=== PATIENT | male | born 1980 | race Caucasian/White ===

== ENCOUNTER 2018-04-13 11:41 | Emergency (ER) | payer SELFPAY ==
[~2018-04-13] VITALS: Ht 175.3 cm; Wt 67.6 kg
[2018-04-13 12:03] VITALS: BP 110/70
--- NOTE | 2018-04-13 12:03 | NUR ---
ED Nurse Note: PT WALKED IN TO ER TODAY FROM [facility]. PT C/O FEVER AND BODYACHE, 10/10 PAIN, X THIS AM. ORAL TEMP AT BEDSIDE 98.7F. LUNG SOUNDS CLEAR IN ALL LOBES. NO SIGNS OF RESPIRATORY DISTRESS OR RETRACTIONS NOTED.
--- NOTE | 2018-04-13 12:24 | Emergency Room Report ---
History of Present Illness General Chief Complaint: Flu Like Symptoms Source: Patient Present Illness HPI 37-year-old male with no significant past medical history claiming that he is coming from the [facility] complaining of one day of fever and chills, and severe body aches. Patient reports that he recently got back from [place] and started having symptoms on the airplane. Complains of cough and congestion with green phlegm and a sore throat however sore throat has resolved. Denies SOB, wheezing, chest pain, palpitation, abdominal pain, nausea vomiting, and diarrhea. Patient has not taken medication for his symptoms Allergies: Coded Allergies: No Known Allergies (Unverified , 04/13/18) Patient History Past Medical History: see triage record Past Surgical History: unable to obtain Pertinent Family History: none Immunizations: UTD Reviewed Nursing Documentation: PMH: Agreed; PSxH: Agreed Nursing Documentation-PMH Past Medical History: No History, Except For Review of Systems All Other Systems: negative except mentioned in HPI Physical Exam Vital Signs Date Time Temp Pulse Resp B/P (MAP) Pulse Ox O2 Delivery O2 Flow Rate FiO2 04/13/18 11:56 101.5 130 20 105/66 98 Room Air Sp02 EP Interpretation: reviewed, normal General Appearance: normal inspection, well appearing, no apparent distress Head: normocephalic, atraumatic Eyes: bilateral eye normal inspection, bilateral eye PERRL ENT: hearing grossly normal, no angioedema, TMs + canals normal, uvula midline , pharyngeal erythema Neck: normal inspection, full range of motion, supple Respiratory: normal inspection, chest non-tender, lungs clear, no rhonchi, no respiratory distress Cardiovascular #1: normal inspection, normal peripheral pulses, no murmur Gastrointestinal: normal inspection, non tender, soft Rectal: deferred Genitourinary: no CVA tenderness Musculoskeletal: normal inspection, back normal Neurologic: normal inspection, alert, oriented x3 Psychiatric: normal inspection, judgement/insight normal Skin: normal inspection, normal color, no rash, warm/dry, normal turgor Lymphatic: normal inspection, no adenopathy Medical Decision Making PA Attestation all diagnoses and treatment plan were reviewed and discussed with my supervising physician Dr. Lopez Diagnostic Impression: Primary Impression: Influenza-like symptoms Additional Impression: Viral URI ER Course 37-year-old male with no significant past medical history claiming that he is coming from the [facility] complaining of one day of fever and chills, and severe body aches. Patient reports that he recently got back from [place] and started having symptoms on the airplane. Complains of cough and congestion with green phlegm and a sore throat however sore throat has resolved. Denies SOB, wheezing, chest pain, palpitation, abdominal pain, nausea vomiting, and diarrhea. Patient has not taken medication for his symptoms Ddx considered but are not limited to viral URI, influenza, strep pharyngitis, bronchitis Vital signs: are WNL, fever of 101F H&PE are most consistent with influenza-like symptoms and viral URI ORDERS: Tamiflu, ibuprofen, Phenergan ED INTERVENTIONS: and Tylenol DISCHARGE: At this time pt. is stable for d/c to home. Will provide printed patient care instructions, and any necessary prescriptions. Care plan and follow up instructions have been discussed with the patient prior to discharge. Last Vital Signs Date Time Temp Pulse Resp B/P (MAP) Pulse Ox O2 Delivery O2 Flow Rate FiO2 04/13/18 12:03 66 20 Room Air 04/13/18 12:03 98.7 110/70 99 Disposition: HOME, SELF-CARE Condition: Stable Scripts Promethazine Hcl (PROMETHAZINE HCL*) 6.25 Mg/5 Ml Syrup 5 ML ORAL Q6H, #120 ML 0 Refills Prov: Ronda Santiago 04/13/18 Ibuprofen* (MOTRIN*) 600 Mg Tablet 600 MG ORAL Q8H PRN for For Pain, #30 TAB 0 Refills Prov: Ronda Santiago 04/13/18 Oseltamivir Phosphate (Tamiflu) 75 Mg Capsule 75 MG ORAL TWICE A DAY for 5 Days, #10 CAP Prov: Ronda Santiago 04/13/18 Patient Instructions: Upper Respiratory Infection, Adult, [id number] Additional Instructions: take medications as directed, increase oral hydration fruits and vegetables avoid greasy and spicy food. Ronda Santiago Apr 13, 2018 12:24
[2018-04-13] MEDS ORDERED: PROMETHAZI6.25 MG/1 ORAL (12:25)
[2018-04-13] MEDS ORDERED: IBUPROFEN600 MG ORAL (12:25)
[2018-04-13] MEDS ORDERED: TAMIFLU75 MG ORAL (12:25)
[2018-04-13] MEDS ORDERED: Acetaminophen 500mg (ES) tab ORAL ONE (12:30)
[2018-04-13 13:21] VITALS: BP 112/76
--- NOTE | 2018-04-13 13:23 | NUR ---
ED Nurse Note: PT LAYING PEACEFULLY IN BED IN NAD. AOX4. PRESCRIPTIONS AND DISCHARGE PAPERWORK EXPLAINED TO PT. PT VERBALIZES UNDERSTANDING AND ALL QUESTIONS ANSWERED. PRESCRIPTIONS AND DISCHARGE PAPERWORK GIVEN TO PT AND ID WRISTBAND REMOVED. PT WALKED OUT OF ER WITH STEADY GAIT AND ALL BELONGINGS.
== END 2018-04-13 13:51 | disposition home or self-care (01) ==
LOC: EMR 12:43
DX: J11.1 Influenza due to unidentified influenza virus with other respiratory manifestations (principal); J06.9 Acute upper respiratory infection, unspecified
CPT/HCPCS: 99282

== ENCOUNTER 2018-06-12 13:16 | Emergency (ER) | payer MEDICAID ==
[~2018-06-12] VITALS: Ht 177.8 cm; Wt 77.1 kg
[~2018-06-12 13:16] MED LIST: IBUPROFEN600 MG ORAL; PROMETHAZI6.25 MG/1 ORAL; TAMIFLU75 MG ORAL
[2018-06-12] MEDS ORDERED: AMOXICILLIN125 MG ORAL (13:26)
--- NOTE | 2018-06-12 13:30 | NUR ---
ED Nurse Note: Patient walked into ED c/o left side chest pain 09/24 patient reports it is painful when he takes deep breath. patient reports that chest pain started about 4-5 days ago. patient states it's nonradiating. patient is a/o x4 ambulatory.
--- NOTE | 2018-06-12 13:37 | Emergency Room Report ---
History of Present Illness General Chief Complaint: Chest Pain Source: Patient Present Illness HPI Patient presents with chest pain that began on Saturday. He's not sure what he did it was doing at that time. It's pleuritic left-sided not radiating. He denies any fevers, cough, sore throat, chills. The patient smokes vape. 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 The patient had a root canal done and has been taking 800 mg ibuprofen. The last time he took it was yesterday. Didn't help the pain in his chest. Denies recent indigestion feelings. He has felt them in the past but not at this time. He had a high cholesterol when he was young. He denies family history of heart disease. There is a family history of diabetes but he denies diabetes. He also denies hypertension. Allergies: Coded Allergies: No Known Allergies (Unverified , 04/13/18) Patient History Past Medical History: see triage record Social History: Reports: smoking; Denies: drug use - prior - opiates, benzos Social History Narrative in Rehab, [place] Reviewed Nursing Documentation: PMH: Agreed; PSxH: Agreed Nursing Documentation-PMH Past Medical History: No History, Except For Review of Systems All Other Systems: negative except mentioned in HPI Physical Exam Vital Signs Date Time Temp Pulse Resp B/P (MAP) Pulse Ox O2 Delivery O2 Flow Rate FiO2 06/12/18 13:22 98.1 70 20 117/72 95 Room Air Sp02 EP Interpretation: reviewed, normal General Appearance: well appearing, no apparent distress, GCS 15 Head: normocephalic Eyes: bilateral eye normal inspection, bilateral eye PERRL, bilateral eye EOMI ENT: moist mucus membranes Neck: supple Respiratory: lungs clear, normal breath sounds, other - left sided chest wall tenderness Cardiovascular #1: regular rate, rhythm, no edema Cardiovascular #2: 2+ radial (L) Gastrointestinal: normal inspection, normal bowel sounds, non tender, no mass, non-distended Musculoskeletal: back normal, gait/station normal, normal range of motion, no calf tenderness Neurologic: alert, oriented x3, grossly normal Psychiatric: mood/affect normal Skin: normal inspection, warm/dry Medical Decision Making Diagnostic Impression: Primary Impression: Chest pain Qualified Codes: R07.89 - Other chest pain Additional Impression: Chest wall pain ER Course Patient presents with left-sided chest pain which is pleuritic. Differential includes pericarditis, pleurisy, costochondritis, chest wall strain, acute myocardial injury, PE amongst others. Patient will be evaluated with EKG, chest x-ray and labs. The patient will be given a dose of aspirin initially. Based on history and exam, PE less likely. EKG without injury or pericarditis. CXR clear. Labs with minimal elevation of WBC, no left shift. Slightly elevated BUN. Troponin normal. Patient somewhat improved with treatment. Discussed findings and need for follow up evaluation. Also advised patient to stop smoking and to discuss this with his PMD. Patient stable for outpatient observation and treatment. Laboratory Tests Test 06/12/18 13:50 White Blood Count 11.7 K/UL (4.8-10.8) H Red Blood Count 5.08 M/UL (4.70-6.10) Hemoglobin 14.8 G/DL (14.2-18.0) Hematocrit 44.4 % (42.0-52.0) Mean Corpuscular Volume 88 FL (80-99) Mean Corpuscular Hemoglobin 29.2 PG (27.0-31.0) Mean Corpuscular Hemoglobin Concent 33.4 G/DL (32.0-36.0) Red Cell Distribution Width 12.9 % (11.6-14.8) Platelet Count 336 K/UL (150-450) Mean Platelet Volume 7.0 FL (6.5-10.1) Neutrophils (%) (Auto) 60.4 % (45.0-75.0) Lymphocytes (%) (Auto) 28.0 % (20.0-45.0) Monocytes (%) (Auto) 7.0 % (1.0-10.0) Eosinophils (%) (Auto) 3.4 % (0.0-3.0) H Basophils (%) (Auto) 1.2 % (0.0-2.0) Sodium Level 140 MMOL/L (136-145) Potassium Level 4.0 MMOL/L (3.5-5.1) Chloride Level 102 MMOL/L (98-107) Carbon Dioxide Level 27 MMOL/L (21-32) Anion Gap 11 mmol/L (5-15) Blood Urea Nitrogen 19 mg/dL (7-18) H Creatinine 0.9 MG/DL (0.55-1.30) Estimate Glomerular Filtration Rate > 60 mL/min (>60) Glucose Level 95 MG/DL (74-106) Calcium Level 8.9 MG/DL (8.5-10.1) Total Bilirubin 0.3 MG/DL (0.2-1.0) Aspartate Amino Transferase (AST) 27 U/L (15-37) Alanine Aminotransferase (ALT) 48 U/L (12-78) Alkaline Phosphatase 75 U/L (46-116) Total Creatine Kinase 151 U/L (26-308) Troponin I 0.000 ng/mL (0.000-0.056) Total Protein 7.2 G/DL (6.4-8.2) Albumin 3.7 G/DL (3.4-5.0) Globulin 3.5 g/dL Albumin/Globulin Ratio 1.1 (1.0-2.7) EKG Diagnostic Results Rate: normal Rhythm: NSR ST Segments: no acute changes Rhythm Strip Diag. Results EP Interpretation: yes Rhythm: NSR, no PVC's, no ectopy Chest X-Ray Diagnostic Results Chest X-Ray Diagnostic Results : Chest X-Ray Ordered: Yes # of Views/Limited/Complete: 1 View Indication: Chest Pain Interpretation: no consolidation, no effusion, no pneumothorax Impression: No acute disease Electronically Signed by: Electronically signed by Spenser Lopez MD Last Vital Signs Date Time Temp Pulse Resp B/P (MAP) Pulse Ox O2 Delivery O2 Flow Rate FiO2 06/12/18 14:49 98.1 73 18 103/70 98 Room Air Status: improved Disposition: HOME, SELF-CARE Condition: Stable Scripts Acetaminophen (Tylenol) 325 Mg Tablet 650 MG ORAL Q6H PRN for Prn Pain/Headache/Temp > 101, #20 TAB 0 Refills Prov: Spenser Lopez MD 06/12/18 Ibuprofen* (MOTRIN*) 600 Mg Tablet 600 MG ORAL Q6H PRN for For Pain, #20 TAB Prov: Spenser Lopez MD 06/12/18 Spenser Lopez MD Jun 12, 2018 13:37
[2018-06-12 14:00] LABS: BASOPHILS % (AUTO) 1.2 % (0.0-2.0); EOSINOPHILS % (AUTO) 3.4 % (0.0-3.0); HEMATOCRIT 44.4 % (42.0-52.0); HEMOGLOBIN 14.8 G/DL (14.2-18.0); MEAN CORPUSCULAR VOLUME 88 FL (80-99); NEUTROPHILS % (AUTO) 60.4 % (45.0-75.0); PLATELET COUNT 336 K/UL (150-450); RED BLOOD COUNT 5.08 M/UL (4.70-6.10); RED CELL DISTRIBUTION WIDTH 12.9 % (11.6-14.8); WHITE BLOOD COUNT 11.7 K/UL (4.8-10.8)
[2018-06-12 14:10] LABS: ANION GAP 11 mmol/L (5-15); BLOOD UREA NITROGEN 19 mg/dL (7-18); CALCIUM 8.9 MG/DL (8.5-10.1); CARBON DIOXIDE 27 MMOL/L (21-32); CHLORIDE 102 MMOL/L (98-107); CREATININE 0.9 MG/DL (0.55-1.30); SODIUM 140 MMOL/L (136-145)
[2018-06-12 14:16] LABS: ALANINE AMINOTRANSFERASE 48 U/L (12-78); ALBUMIN 3.7 G/DL (3.4-5.0); ALBUMIN/GLOBULIN RATIO 1.1 (1.0-2.7); ALKALINE PHOSPHATASE 75 U/L (46-116); ASPARTATE AMINO TRANSFERASE 27 U/L (15-37); BILIRUBIN,TOTAL 0.3 MG/DL (0.2-1.0); CREATINE KINASE 151 U/L (26-308)
--- NOTE | 2018-06-12 14:28 | Diagnostic Imaging Report ---
Indication: Dyspnea Comparison: None A single view chest radiograph was obtained. Findings: Cardiomediastinal appearance is within normal limits for age. The lungs are clear. Pulmonary vascularity is appropriate. The diaphragmatic contour is smooth and costophrenic angles are sharp. No pleural effusions are identified. The bones are unremarkable. Impression: No acute findings
[2018-06-12] MEDS ORDERED: TYLENOL325 MG ORAL (14:38)
[2018-06-12] MEDS ORDERED: IBUPROFEN600 MG ORAL (14:38)
[2018-06-12 14:48] VITALS: BP 103/70
[2018-06-12 14:49] VITALS: BP 103/70
--- NOTE | 2018-06-12 14:49 | NUR ---
ER DISCHARGE NOTE: Patient is cleared to be discharged per ERMD, pt is aox4, on room air, with stable vital signs. pt was given dc and prescription instructions, pt was able to verbalize understanding, pt id band and iv site removed without complications. pt is able to ambulate with steady gait. pt took all belongings.
== END 2018-06-12 14:48 | disposition home or self-care (01) ==
LOC: EMR 13:56
DX: R07.89 Other chest pain (principal)
CPT/HCPCS: 36415; 71045; 80053; 82550; 84484; 85025; 93005; 99283